=== PATIENT | male | born 1990 | race Two or more races ===

== ENCOUNTER 2020-03-14 09:25 | Inpatient (IN) | payer OTHER ==
[~2020-03-14] VITALS: Ht 182.9 cm; Wt 103.5 kg
--- NOTE | 2020-03-14 10:30 | NUR ---
MS admit Direct YAZMIN HALE admitted to tele/MS. Patient oriented to Amrik Hawley, primary RN, unit, room, bed, and unit policies regarding patient care and visiting hours. Patient weighed by bedscale and encouraged to call if they need something. All questions and concerns addressed, patient verbalized understanding. Note: Will contact Dr. Beasley for orders
[2020-03-14] MEDS ORDERED: D5W/SOD CHL 0.45% 1,000 ML IV SCH (11:30)
[2020-03-14] MEDS ORDERED: ONDANSETRON HCL 4 MG/2 ML VIAL IV PRN (11:30)
[2020-03-14 12:13] LABS: Basophils # (auto) 0 10 ^3/uL (0-0.2); Lymphocytes # (auto) 1.8 10 ^3/uL (0.4-5.4); Monocytes # (auto) 0.4 10 ^3/uL (0-1.3); Neutrophils # (auto) 2.8 10 ^3/uL (1.6-8.6); White Blood Cell 5.1 10^3/uL (4.4-10.8)
[2020-03-14 12:15] LABS: Basophils % (auto) 0.4 % (0.0-2.0); Eosinophils # (auto) 0.2 10 ^3/uL (0-0.8); Eosinophils % (auto) 3.4 % (0.0-7.0); Hematocrit 40.8 % (41.0-53.0); Lymphocytes % (auto) 34.6 % (10.0-50.0); Mean Corpuscular Hemoglobin 23.2 pg (28.0-32.0); Mean Corpuscular Hgb Conc. 31.8 g/dL (32.0-36.0); Mean Corpuscular Volume 73.1 fL (80.0-100.0); Monocytes % (auto) 7.4 % (0.0-12.0); Neutrophils % (auto) 54.2 % (37.0-80.0); Platelet Count (auto) 269 10^3/uL (140-450); Red Blood Cells 5.58 10^6/uL (4.5-5.90); Red Cell Distribution Width 13.1 % (11.8-14.3)
[2020-03-14 12:20] LABS: INR 1.1 (0.9-1.15); Partial Thromboplastin Time 27.5 sec (23.0-31.2)
[2020-03-14 12:22] LABS: Calcium 9.6 mg/dL (8.5-10.1); Potassium 3.8 mmol/L (3.5-5.1)
[2020-03-14 12:26] LABS: BUN/Creatinine Ratio 12.6; Bilirubin, Total 0.6 mg/dL (0.2-1.0); Total Protein 8.5 g/dL (6.4-8.2)
[2020-03-14 16:53] VITALS: BP 119/70
--- NOTE | 2020-03-14 20:00 | NUR ---
Patient refusing IV at this time, requesting IV start "in the morning". Patient educated on importance of having IV access, patient verbalized understanding, requested to have IV done "in the morning". Will continue care.
[2020-03-14 22:00] VITALS: BP 116/65
--- NOTE | 2020-03-14 23:30 | NUR ---
Dr. Alexei Rahman at bedside, plan of care discussed. No new orders received. Will continue care.
--- NOTE | 2020-03-15 05:20 | NUR ---
EKG performed for surgery. Copy placed in hard chart for doctor. Patient tolerated well. Will continue care.
[2020-03-15 05:54] VITALS: BP 131/61
--- NOTE | 2020-03-15 06:00 | NUR ---
IV insertion IV access obtained, via clean sterile technique by inserting 20 gauge catheter to patient's left forearm after three attempts by Yessi COLBERT. IV secured properly. No trauma to site. Patient tolerated well.
--- NOTE | 2020-03-15 06:30 | NUR ---
Patient taken to PACU on bed accompanied by Dustin RN. Surgical mask applied to patient prior to transport. Guards at bedside. Patient transferred to PACU without incident. No s/s of distress noted on departure.
[2020-03-15] MEDS ORDERED: fentaNYL CITRATE 100 MCG/2 ML VL ONE (06:31)
[2020-03-15] MEDS ORDERED: MIDAZOLAM HCL 1MG/1ML-2 ML VIAL ONE (06:31)
[2020-03-15] MEDS ORDERED: HYDROmorphone HCL 2 MG/ML VL ONE (06:31)
[2020-03-15] MEDS ORDERED: DexAMETHasone SOD PHOS 10MG/1ML VIAL INJ ONE (06:32)
[2020-03-15] MEDS ORDERED: ONDANSETRON HCL 4 MG/2 ML VIAL ONE (06:32)
[2020-03-15] MEDS ORDERED: GLYCOPYRROLATE 0.2 MG/ML 1ML VIAL ONE (06:32)
[2020-03-15] MEDS ORDERED: PROPOFOL 10 MG/ML 20 ML IV ONE (06:32)
[2020-03-15] MEDS ORDERED: LIDOCAINE 2% (LOCAL ANESTH.) PF 5ml SDV ONE (06:32)
[2020-03-15] MEDS ORDERED: KETOROLAC TROMETH 30 MG/ML 1ML VIAL ONE (06:32)
[2020-03-15] MEDS ORDERED: ROPIVACAINE 0.5% (5MG/ML) 20ML AMPULE IJ ONE (06:37)
[2020-03-15] MEDS ORDERED: ceFAZolin 1GM/50ML 100 ML IV ONE (06:56)
--- NOTE | 2020-03-15 07:10 | NUR ---
Report given to dayshift RN, all questions and concerns addressed. Care endorsed to dayshift RN.
--- NOTE | 2020-03-15 07:50 | NUR ---
PATIENT OFF UNIT FOR PROCEDURE, TAKEN BY SUPERINTENDENT BUILDING RN.
[2020-03-15] MEDS ORDERED: LACTATED RINGER'S 1,000 ML IV SCH (08:12)
[2020-03-15] MEDS ORDERED: ACETAMINOPHEN 325 MG TAB PO PRN (08:15)
[2020-03-15] MEDS ORDERED: fentaNYL CITRATE 100 MCG/2 ML VL IV ONE (08:50)
[2020-03-15] MEDS ORDERED: ONDANSETRON HCL 4 MG/2 ML VIAL IV PRN (09:00)
[2020-03-15] MEDS ORDERED: hydrALAZINE HCL 20 MG/ML VL IV PRN (09:00)
[2020-03-15] MEDS ORDERED: fentaNYL CITRATE 100 MCG/2 ML VL IV PRN (09:00)
[2020-03-15] MEDS ORDERED: ePHEDrine SULFATE 50 MG/ML AMP IV PRN (09:00)
--- NOTE | 2020-03-15 09:55 | NUR ---
PATIENT BACK ON UNIT PATIENT LYING IN BED, NO DISTRESS NOTED. DENIES PAIN, BED IN LOWEST POSITION, SIDE RAILS UP X2, CALL LIGHT WITHIN REACH. GUARDS AT BEDSIDE. PATIENT ENCOURAGED TO CALL IF HE NEEDS ANYTHING, WILL CONTINUE TO MONITOR.
[2020-03-15] MEDS ORDERED: ENOXAPARIN SOD 40 MG/0.4 ML SYRINGE SC SCH (10:00)
[2020-03-15] MEDS: ENOXAPARIN SOD 40 MG/0.4 ML SYRINGE SC SCH (10:00)
--- NOTE | 2020-03-15 10:35 | NUR ---
IS INCENTIVE SPIROMETER AT BEDSIDE. PATIENT EDUCATED AND ENCOURAGED ON USE. ALL QUESTIONS ADDRESSED. PATIENT RETURNED DEMONSTRATION.
[2020-03-15] MEDS: ceFAZolin 1GM/50ML 50 ML IV SCH ×2 (15:44→20:49)
[2020-03-15] MEDS: SODIUM CHLOR 0.9% PF (SALINE LOCK) 10ML VIAL/SYR IV SCH ×2 (15:45→20:48)
[2020-03-15] MEDS: MORPHINE SULFATE 4 MG/ML SYR/VIAL IV PRN (15:52)
[2020-03-15 16:45] VITALS: BP 127/60
--- NOTE | 2020-03-15 20:35 | NUR ---
Patient reporting 6/10 pain to right ankle, requesting ordered PRN [place]. Will administer (see emar) and continue care.
[2020-03-15] MEDS: HYDROcodone-ACET 5/325MG TAB PO PRN (20:49)
[2020-03-15 22:00] VITALS: BP 112/54
[2020-03-16] MEDS: ceFAZolin 1GM/50ML 50 ML IV SCH (03:47)
[2020-03-16 05:00] VITALS: BP 112/57
[2020-03-16] MEDS: SODIUM CHLOR 0.9% PF (SALINE LOCK) 10ML VIAL/SYR IV SCH ×3 (06:00→20:52)
[2020-03-16] MEDS: MORPHINE SULFATE 4 MG/ML SYR/VIAL IV PRN ×3 (07:01→20:53)
--- NOTE | 2020-03-16 07:20 | NUR ---
Closing Note Patient lying in bed, awake and alert. Bed in lowest locked position, side rails up x2, call light within reach. No s/s of distress. Care endorsed to dayshift FILEMON. Addendum: 03/17/20 at 0639 by ESTRADA SANTOS RN RN ADDITION: Guards at bedside at time of original note.
--- NOTE | 2020-03-16 07:30 | NUR ---
Opening shift note Patient comfortably resting in bed. No s/s of distress at this time. Patient denies pain as he was recently medicated. Patient s/p right ankle ORIF. Neurological assessment to lower extremities performed and passed. Patient updated on POC and to call for assistance as needed. Will continue to monitor.
[2020-03-16] MEDS ORDERED: traMADol HCL 50 MG TAB PO PRN (08:30)
[2020-03-16 08:35] VITALS: BP 138/70
[2020-03-16] MEDS: ENOXAPARIN SOD 40 MG/0.4 ML SYRINGE SC SCH (10:00)
--- NOTE | 2020-03-16 12:46 | NUR ---
PAIN PATIENT COMPLAINING OF PAIN 7/10 FROM RIGHT LOWER EXTREMITY. PATIENT S/P RIGHT ANKLE ORIF. MEDICATED WITH MORPHINE 4MG IV Q4HR PRN NEEDED FOR SEVERE PAIN. WILL REASSESS PAIN.
[2020-03-16 13:00] VITALS: BP 124/59
--- NOTE | 2020-03-16 13:59 | NUR ---
Est energy needs 3592-0378 kcal (14-18 kcal/kg BW 104kg) Est protein needs 81-105g (1-1.5g/kg IBW 81kg) Will reassess prn. Addendum: 03/16/20 at [address] Amended: Links added.
[2020-03-16 17:00] VITALS: BP 128/69
--- NOTE | 2020-03-17 00:20 | NUR ---
Patient reporting 5/10 pain to right ankle, requesting ordered PRN [place]. Will administer (see emar) and continue care.
[2020-03-17] MEDS: HYDROcodone-ACET 5/325MG TAB PO PRN (00:24)
[2020-03-17] MEDS: SODIUM CHLOR 0.9% PF (SALINE LOCK) 10ML VIAL/SYR IV SCH ×2 (06:20→14:19)
--- NOTE | 2020-03-17 06:35 | NUR ---
Closing Note Patient lying in bed, awake and alert. Bed in lowest locked position, side rails up x2, call light within reach. Guards at bedside. No s/s of distress. Will endorse care to dayshift RN.
--- NOTE | 2020-03-17 07:30 | NUR ---
Opening shift note Patient comfortably resting in bed. No s/s of distress at this time. Patient denies pain. Patient s/p right ankle ORIF. Neurological assessment to lower extremities performed and passed. Patient updated on POC and to call for assistance as needed. Will continue to monitor.
[2020-03-17 08:57] VITALS: BP 122/64
[2020-03-17] MEDS: MORPHINE SULFATE 4 MG/ML SYR/VIAL IV PRN (09:27)
[2020-03-17] MEDS: ENOXAPARIN SOD 40 MG/0.4 ML SYRINGE SC SCH (09:27)
--- NOTE | 2020-03-17 09:27 | NUR ---
C/O RIGHT ANKLE PAIN,PATIENT MEDICATED WITH MORPHINE 4 MG IV SEE eMAR FOR DETAIL
--- NOTE | 2020-03-17 10:35 | NUR ---
MD VISIT DR. Alexei MOMIN HERE TO SEE AND EXAMINED PATIENT,RECEIVED ORDER FOR DISCHARGE
[2020-03-17 13:00] VITALS: BP 127/65
--- NOTE | 2020-03-17 13:00 | NUR ---
RECEIVED CALL FROM MEDICAL STAFF AT [facility] (PASSWORD PROVIDED) UPDATED WITH PLAN OF CARE AND VITAL SIGNS
[2020-03-17 14:35] VITALS: BP 127/65
--- NOTE | 2020-03-17 15:25 | NUR ---
Discharge instructions,prescription, medical records given to long term security for the facility. Instructed to follow up with Dr. Harrison's office in 2 weeks ,instructed on strict Non Weight Bearing to right lower extremities for 6 weeks . All questions and concerns addressed. Patient verbalized understanding. IV removed with catheter intact, pressure dressing applied .
--- NOTE | 2020-03-17 17:04 | NUR ---
Still awaiting for order picker from facility
--- NOTE | 2020-03-17 17:40 | NUR ---
DISCHARGE Patient taken to vehicle via wheelchair with all personal belongings, and crutches,accompanied by staff and [facility] guards. No distress noted at time of departure.
== END 2020-03-17 17:40 | DRG 494 ==
LOC: WEST WING 09:25 → EEVIPCON 09:25
PROVIDERS: ADMIT Internal Medicine; ATTEND Internal Medicine
PROC: BW1C1ZZ Fluoroscopy of Lower Extremity using Low Osmolar Contrast (ICD-10-PCS; 2020-03-15)
PROC: 0QSJ04Z Reposition Right Fibula with Internal Fixation Device, Open Approach (ICD-10-PCS; principal; 2020-03-15 07:06)
DX: S82.851A Displaced trimalleolar fracture of right lower leg, initial encounter for closed fracture (principal); W22.8XXA Striking against or struck by other objects, initial encounter; Y93.89 Activity, other specified; Y92.89 Other specified places as the place of occurrence of the external cause; Y99.8 Other external cause status; Z11.59 Encounter for screening for other viral diseases
CPT/HCPCS: 36415; 71045; 73600; 80053; 85025; 85610; 85730; 86850; 86900; 86901; 93005; 97163; C1713; G0378; J0690; J1100; J1885; J2001; J2250; J2405; J2704

== ENCOUNTER 2020-03-21 16:06 | Emergency (ER) | payer OTHER ==
[~2020-03-21] VITALS: Ht 182.9 cm; Wt 102.1 kg
[2020-03-21 16:19] VITALS: BP 105/60
[2020-03-21] MEDS ORDERED: IBUPROFEN 800 MG TAB PO ONE (16:45)
== END 2020-03-21 17:56 ==
LOC: EEVIPCON 16:06 → ER 16:06
DX: S82.831D Other fracture of upper and lower end of right fibula, subsequent encounter for closed fracture with routine healing (principal); X58.XXXD Exposure to other specified factors, subsequent encounter
CPT/HCPCS: 73610